=== PATIENT | male | born 1995 | race African-American/Black ===

== ENCOUNTER 2018-11-22 20:16 | Emergency (ER) | payer SELFPAY ==
[2018-11-22] MEDS ORDERED: HYDROcodone/Acetaminophen 5/325 mg Tablet ONE (20:48)
--- NOTE | 2018-11-22 21:26 | CT ---
CT facial bones: 11/22/2018 COMPARISON: None HISTORY: Injury, trauma, left-sided pain TECHNIQUE: Axial CT imaging at 2.5 mm intervals through the face without contrast. Coronal and sagitt al reformatted imaging obtained. FINDINGS: No acute displaced nasal bone fracture. Contour of the nasal bones is slightly irregular, which may reflect prior injury. The zygomatic arche s and the pterygoid plates appear intact. The frontal sinuses are hypoplastic. The sphenoid sinuses, maxillary sinuses, ethmoid air cells, and mastoid air cells demonstrate no significant opacification. There is polypoid mucosal thickening involving the anteromedial aspect of the left maxillary sinus. The temporomandibular joints appear normal. No evidence for a mandibular fracture is seen. There is mild soft tissue swelling superior to the left orbit. The orbital floor and the medial orbital wall appears intact bilaterally. IMPRESSION: No fracture or dislocation involving the facial bones.
== END 2018-11-22 21:49 | disposition home or self-care (01) ==
LOC: ERS 20:16
DX: S00.12XA Contusion of left eyelid and periocular area, initial encounter (principal); F17.220 Nicotine dependence, chewing tobacco, uncomplicated; X99.9XXA Assault by unspecified sharp object, initial encounter
CPT/HCPCS: 70486

== ENCOUNTER 2019-08-27 22:56 | Emergency (ER) | payer SELFPAY ==
[2019-08-27] MEDS ORDERED: Ondansetron ODT 4 MG TAB ONE (23:54)
== END 2019-08-28 00:33 | disposition home or self-care (01) ==
LOC: ERS 22:56
DX: T40.4X1A Poisoning by other synthetic narcotics, accidental (unintentional), initial encounter (principal); Z71.6 Tobacco abuse counseling; F17.220 Nicotine dependence, chewing tobacco, uncomplicated
CPT/HCPCS: 99406; Q0162

== ENCOUNTER 2021-08-05 22:27 | Observation (INO) | payer SELFPAY ==
[~2021-08-05 22:27] MED LIST: Iopamidol 370 76% 50 ML VIAL FS ONE
[2021-08-05] MEDS ORDERED: Ondansetron PF 4 MG/2 ML Vial ONE (23:11)
[2021-08-05 23:14] LABS: #Lymphocytes 1.3 thou/uL (1.20-3.40); #Monocytes 0.9 thou/uL (0.11-0.59); #Neutrophils 9.8 thou/uL (1.40-6.50); %Basophils 0.2 % (0.0-1.0); %Eosinophils 0.4 % (0.0-10.0); %Lymphocytes 10.8 % (21.0-51.0); %Monocytes 7.6 % (0.0-10.0); Mean Corpuscular HGB CONC 33.5 g/dL (32.0-36.0); Mean Corpuscular Hemoglobin 28.2 pg (27.0-31.0); Mean Corpuscular Volume 84.3 fL (78.0-98.0); Mean Platelet Volume 6.7 fL (7.4-10.4); Platelet Count 319 thou/uL (130-400); RBC Distribution Width 12.7 % (11.5-14.5); Red Blood Cell (RBC) Count 5.32 mill/uL (4.70-6.10); White Blood Cell (WBC) Count 12.1 thou/uL (4.8-10.8)
[2021-08-05 23:38] LABS: ALT (SGPT) 22 U/L (8-55); AST (SGOT) 15 U/L (5-34); Albumin 4.8 g/dL (3.5-5.0); Alkaline Phosphatase 131 U/L (40-110); Anion Gap 17 mmol/L (10-20); BUN (Urea Nitrogen) 10 mg/dL (8.9-20.6); Bilirubin, Total 0.9 mg/dL (0.2-1.2); Calc. Creatinine Clearance 0 mL/min (70-130); Calcium 10.2 mg/dL (7.8-10.44); Carbon Dioxide 22 mmol/L (22-29); Chloride 100 mmol/L (98-107); Globulin 3.6 g/dL (2.4-3.5); Glucose 106 mg/dL (70-105); Lipase Less than 4 U/L (8-78); Potassium 3.9 mmol/L (3.5-5.1); Protein, Total 8.4 g/dL (6.0-8.3); Sodium 135 mmol/L (136-145)
[2021-08-06] MEDS ORDERED: Morphine 4 MG/ML VIAL ONE ×2 (00:05→01:44)
[2021-08-06 00:06] LABS: Bacteria/HPF None Seen HPF (None Seen); Bilirubin Negative (Negative); Blood, Urine Negative (Negative); Clarity Clear (Clear); Glucose, Urine (Dipstick) Normal (Negative); Ketone, Urine 100 mg/dL (Negative); Leukocyte Negative Leu/uL (Negative); Mucous/LPF 4+ LPF (<2+); Nitrite Negative (Negative); Protein, Urine (Dipstick) 30 mg/dL (Neg-Trace); RBC/HPF 0-3 HPF (0-3); Specific Gravity, Urine 1.034 (1.002-1.036); Squamous Epithelial None Seen HPF (0-3); Urobilinogen 6 mg/dL (Less than 2)
[2021-08-06] MEDS ORDERED: Promethazine HCl 25 MG/ML VIAL ONE ×2 (00:06→09:01)
[2021-08-06] MEDS ORDERED: Piperacillin/Tazobactam 4.5 GM VIAL ONE (00:23)
[2021-08-06] MEDS ORDERED: Morphine 4 MG/ML VIAL SLOW IVP PRN (00:37)
[2021-08-06] MEDS ORDERED: Ondansetron PF 4 MG/2 ML Vial IVP PRN (00:45)
[2021-08-06] MEDS ORDERED: Sodium Chloride 0.9% 1,000 ML IV SCH (00:45)
[2021-08-06] MEDS ORDERED: Ondansetron PF 4 MG/2 ML Vial ONE ×2 (01:44→09:09)
[2021-08-06 04:00] LABS: SARS-CoV-2 NAA Rapid Test Not Detected (NotDetected)
[2021-08-06] MEDS ORDERED: Piperacillin/Tazobactam 3.375 GM in Sodium Chloride 0.9% 100 ML IVPB SCH (04:00)
[2021-08-06] MEDS ORDERED: Piperacillin/Tazobactam 3.375 GM VIAL ONE (04:02)
[2021-08-06] MEDS ORDERED: Xylocaine 1% w/ Epi 1:100K 10 ML VIAL ONE (07:58)
[2021-08-06] MEDS ORDERED: Bupivacaine 0.25% HCL 30 ML VIAL ONE (07:58)
[2021-08-06] MEDS ORDERED: Fentanyl 250 MCG/5 ML VIAL ONE (09:01)
[2021-08-06] MEDS ORDERED: Esmolol 100 MG/10 ML VIAL ONE (09:09)
[2021-08-06] MEDS ORDERED: Dexamethasone 20 MG/5 ML VIAL ONE (09:09)
[2021-08-06] MEDS ORDERED: Glycopyrrolate 0.2 MG/ML 5 ML SYRINGE ONE (09:09)
[2021-08-06] MEDS ORDERED: Ketorolac Tromethamine 30 MG/ML VIAL ONE (09:09)
[2021-08-06] MEDS ORDERED: Succinylcholine 200 MG/10 ml SYRINGE FS ONE (09:09)
[2021-08-06] MEDS ORDERED: Rocuronium Bromide 10 MG/ML (10ML VIAL) ONE (09:09)
[2021-08-06] MEDS ORDERED: PROPOFOL 200 MG/20 ML VIAL ONE (09:09)
[2021-08-06] MEDS ORDERED: diphenhydrAMINE 50 MG/ML VIAL ONE (09:09)
[2021-08-06] MEDS ORDERED: Lidocaine 1% PF 5 ML VIAL ONE (09:09)
[2021-08-06] MEDS ORDERED: Meperidine HCl/PF 25 MG/ML VIAL ONE (10:34)
== END 2021-08-06 13:00 | disposition home or self-care (01) ==
LOC: ERS 22:27 → ERHOLD 08-06 00:24
PROVIDERS: ADMIT Surgery; ATTEND Surgery
PROC: 0DTJ4ZZ Resection of Appendix, Percutaneous Endoscopic Approach (ICD-10-PCS; principal; 2021-08-06)
DX: K35.32 Acute appendicitis with perforation, localized peritonitis, and gangrene, without abscess (principal); F17.210 Nicotine dependence, cigarettes, uncomplicated; Z20.822 Contact with and (suspected) exposure to COVID-19
CPT/HCPCS: 71045; 74177; 80053; 81003; 81015; 83690; 84484; 85025; 88304; 93005; 96376; C1713; G0378; J0500; J1100; J1200; J1885; J2175; J2270; J2405; J2543; J2550; J2704; J3010; J3490; J7050; Q9967; S0020; U0002

== ENCOUNTER 2021-08-15 05:25 | Emergency (ER) | payer SELFPAY ==
[2021-08-15 06:46] LABS: Hemoglobin 13.7 g/dL (14.0-18.0); Mean Corpuscular HGB CONC 33.8 g/dL (32.0-36.0); Mean Corpuscular Hemoglobin 28.3 pg (27.0-31.0); Mean Corpuscular Volume 83.6 fL (78.0-98.0); Mean Platelet Volume 6.4 fL (7.4-10.4); Platelet Count 541 thou/uL (130-400); RBC Distribution Width 12.3 % (11.5-14.5); Red Blood Cell (RBC) Count 4.85 mill/uL (4.70-6.10); White Blood Cell (WBC) Count 13.6 thou/uL (4.8-10.8)
[2021-08-15 06:57] LABS: ALT (SGPT) 75 U/L (8-55); AST (SGOT) 37 U/L (5-34); Albumin 3.9 g/dL (3.5-5.0); Alkaline Phosphatase 113 U/L (40-110); Anion Gap 18 mmol/L (10-20); BUN (Urea Nitrogen) 9 mg/dL (8.9-20.6); Bilirubin, Total 0.3 mg/dL (0.2-1.2); Calc. Creatinine Clearance 0 mL/min (70-130); Calcium 9.7 mg/dL (7.8-10.44); Carbon Dioxide 21 mmol/L (22-29); Chloride 98 mmol/L (98-107); Globulin 4.7 g/dL (2.4-3.5); Glucose 111 mg/dL (70-105); Potassium 3.9 mmol/L (3.5-5.1); Protein, Total 8.6 g/dL (6.0-8.3); Sodium 133 mmol/L (136-145)
[2021-08-15 07:03] LABS: Band 5 % (5-11); Lymphocytes 22 % (21-51); MDiff Complete? YES; Monocytes 8 % (0-10); Neutrophil 65 % (42-75); Platelet Morphology Comment Appears Increased
[2021-08-15] MEDS ORDERED: Xylocaine 1% w/ Epi 1:100K 10 ML VIAL ONE (08:28)
[2021-08-15] MEDS ORDERED: Morphine 4 MG/ML VIAL ONE (08:56)
[2021-08-15] MEDS ORDERED: Ondansetron PF 4 MG/2 ML Vial ONE (08:56)
[2021-08-15] MEDS ORDERED: Iopamidol 300 61% 100 ML VIAL FS ONE (11:37)
== END 2021-08-15 09:35 | disposition home or self-care (01) ==
LOC: ERS 05:25
DX: T81.49XA Infection following a procedure, other surgical site, initial encounter (principal); F17.220 Nicotine dependence, chewing tobacco, uncomplicated
CPT/HCPCS: 74177; 80053; 85025; 87070; 87077; 87205; 96374; 96375; J2270; J2405

== ENCOUNTER 2021-11-06 09:51 | Emergency (ER) | payer SELFPAY ==
[~2021-11-06 09:51] MED LIST changes: -Iopamidol 370 76% 50 ML VIAL FS ONE; +Iopamidol-370 76% 500 ML 1 ML ONE
[2021-11-06] MEDS ORDERED: Dicyclomine 20 MG TAB ONE (10:49)
[2021-11-06 11:02] LABS: #Basophils 0.1 thou/uL (0.0-0.2); #Eosinphils 0.2 thou/uL (0.0-0.7); #Lymphocytes 2.3 thou/uL (1.20-3.40); #Monocytes 0.6 thou/uL (0.11-0.59); #Neutrophils 2.8 thou/uL (1.40-6.50); %Eosinophils 4.1 % (0.0-10.0); %Monocytes 10.4 % (0.0-10.0); %Neutrophils 46.5 % (42.0-75.0); Hemoglobin 14.9 g/dL (14.0-18.0); Mean Corpuscular HGB CONC 32.5 g/dL (32.0-36.0); Mean Corpuscular Volume 86.3 fL (78.0-98.0); Mean Platelet Volume 6.8 fL (7.4-10.4); Platelet Count 348 thou/uL (130-400); RBC Distribution Width 13.3 % (11.5-14.5); Red Blood Cell (RBC) Count 5.31 mill/uL (4.70-6.10); White Blood Cell (WBC) Count 5.9 thou/uL (4.8-10.8)
[2021-11-06 11:23] LABS: ALT (SGPT) 18 U/L (8-55); AST (SGOT) 15 U/L (5-34); Albumin 4.7 g/dL (3.5-5.0); Alkaline Phosphatase 119 U/L (40-110); Anion Gap 11 mmol/L (10-20); BUN (Urea Nitrogen) 8 mg/dL (8.9-20.6); Bilirubin, Total 0.5 mg/dL (0.2-1.2); Calc. Creatinine Clearance 0 mL/min (70-130); Calcium 9.9 mg/dL (7.8-10.44); Carbon Dioxide 26 mmol/L (22-29); Chloride 105 mmol/L (98-107); Globulin 3.1 g/dL (2.4-3.5); Glucose 91 mg/dL (70-105); Lipase 12 U/L (8-78); Potassium 3.8 mmol/L (3.5-5.1); Protein, Total 7.8 g/dL (6.0-8.3); Sodium 138 mmol/L (136-145)
== END 2021-11-06 12:33 | disposition home or self-care (01) ==
LOC: ERS 09:51
DX: R10.31 Right lower quadrant pain (principal); R11.0 Nausea; F17.210 Nicotine dependence, cigarettes, uncomplicated
CPT/HCPCS: 36415; 74177; 80053; 83605; 83690; 85025; 94760; Q9967